=== PATIENT | female | born 2000 | race Two or more races ===

== ENCOUNTER 2020-05-07 23:18 | Inpatient (IN) | payer MEDICAID, OTHER ==
[~2020-05-07] VITALS: Ht 165.1 cm; Wt 60.8 kg
[2020-05-07] MEDS ORDERED: ANTIDEPRESSANT PO (23:33)
[2020-05-07] MEDS ORDERED: SODIUM CHLORIDE 0.9% 1,000 ML IV ONE (23:45)
[2020-05-07 23:58] LABS: BASOPHILS % (AUTO) 0.4 % (0.0-2.0); EOSINOPHILS % (AUTO) 2.1 % (1.0-6.0); HEMATOCRIT 42.8 % (36-46); HEMOGLOBIN 14.4 g/dL (12.0-16.0); LYMPHOCYTES # (AUTO) 3.1 K/uL (1.0-4.8); LYMPHOCYTES % (AUTO) 47.1 % (22.0-44.0); MEAN CORPUSCULAR HEMOGLOBIN 28.9 pg (26.0-34.0); MEAN CORPUSCULAR HGB CONC 33.7 G/dL (31.0-37.0); MEAN CORPUSCULAR VOLUME 86 fL (80-100); MONOCYTES # (AUTO) 0.5 K/uL (0.1-1.0); MONOCYTES % (AUTO) 7.7 % (2.0-9.0); NEUTROPHILS # (AUTO) 2.8 K/uL (1.8-7.7); NEUTROPHILS % (AUTO) 42.7 % (40.0-70.0); PLATELET COUNT (AUTO) 221 K/uL (150-450); RED BLOOD CELL COUNT(AUTO) 4.98 MIL/uL (4.00-5.20); RED CELL DISTRIBUTION WIDTH 12.4 % (11.5-14.5)
[2020-05-08 00:07] LABS: ANION GAP 14 mmol/L (8-16); CALCIUM, TOTAL 8.9 mg/dL (8.8-10.5); CARBON DIOXIDE 23 mmol/L (22-29); CHLORIDE 104 mmol/L (98-107); CREATININE 0.76 mg/dL (0.60-1.30); GLOMERULAR FILTR. RATE CALC > 60 mL/min (>60); GLUCOSE,RANDOM 96 mg/dL (70-110); POTASSIUM 3.3 mmol/L (3.5-5.1); SODIUM SERUM 141 mmol/L (136-145); UREA NITROGEN, BLOOD 11 mg/dL (7-18)
[2020-05-08 00:18] LABS: ALANINE AMINOTRANSFERASE 19 U/L (12-78); ALBUMIN 4.4 g/dL (3.4-5.0); ALKALINE PHOSPHATASE 83 U/L (46-116); ASPARTATE AMINOTRANSFERASE 13 U/L (15-37); BILIRUBIN,TOTAL 0.4 mg/dL (0.1-1.0); HCG,QUANTITATIVE < 1 mIU/mL (0-6); TOTAL PROTEIN, SERUM 8.1 g/dL (6.4-8.2)
[2020-05-08 00:33] LABS: ACETAMINOPHEN 123 mcg/mL (10-30)
[2020-05-08 00:53] LABS: LIPASE 102 U/L (73-393)
[2020-05-08 01:11] LABS: SALICYLATE 0.2 mg/dL (2.8-20.0)
[2020-05-08] MEDS ORDERED: POTASSIUM CHLORIDE 20 MEQ ER TABLET PO ONE (01:15)
[2020-05-08 01:44] LABS: COVID AG,FIA SOURCE NASOPHARYNGEAL
[2020-05-08 02:39] LABS: SALICYLATE < 0.2 mg/dL (2.8-20.0)
[2020-05-08 02:44] LABS: ACETAMINOPHEN 70 mcg/mL (10-30)
[2020-05-08 06:55] LABS: AMPHET/METH SCREEN,URINE NEGATIVE (NEGATIVE); BARBITURATE SCREEN, URINE NEGATIVE (NEGATIVE); BENZODIAZEPINES SCREEN,URINE NEGATIVE (NEGATIVE); CANNABINOID SCREEN,URINE POSITIVE (NEGATIVE); COCAINE SCREEN,URINE NEGATIVE (NEGATIVE); METHADONE SCREEN, URINE NEGATIVE (NEGATIVE); OPIATE SCREEN,URINE NEGATIVE (NEGATIVE)
[2020-05-08 06:56] LABS: PHENCYCLIDINE SCREEN,URINE NEGATIVE (NEGATIVE)
[2020-05-08] MEDS ORDERED: ZOLPIDEM TARTRATE 10 MG TABLET PO PRN (11:30)
[2020-05-08] MEDS ORDERED: LORazepam 2 MG TABLET PO PRN (11:30)
[2020-05-08] MEDS ORDERED: HALOPERIDOL 5 MG TABLET PO PRN (11:30)
[2020-05-08 14:41] VITALS: BP 128/72
[2020-05-08] MEDS: BACITRACIN 28 GM OINTMENT TP SCH (16:04)
[2020-05-08 16:32] VITALS: BP 119/68
[2020-05-08 19:29] VITALS: BP 130/83
[2020-05-08 20:11] VITALS: BP 130/83
[2020-05-09 00:52] VITALS: BP 112/65
[2020-05-09 00:53] VITALS: BP 112/65
[2020-05-09 08:09] VITALS: BP 125/71
[2020-05-09 08:21] LABS: HEMOGLOBIN A1C 4.8 % (3.8-5.6)
[2020-05-09] MEDS ORDERED: CloNIDine HCL 0.1 MG TABLET PO PRN (08:30)
[2020-05-09] MEDS ORDERED: DOCUSATE SODIUM 100 MG CAPSULE PO PRN (08:30)
[2020-05-09] MEDS ORDERED: PETROLATUM,WHITE 28 GM JELLY TP PRN (08:30)
[2020-05-09] MEDS ORDERED: IBUPROFEN 400 MG TABLET PO PRN (08:30)
[2020-05-09] MEDS ORDERED: MAG HYDROX/AL HYDROX/SIMETH ES 30 ML SUSPENSION UDCUP PO PRN (08:30)
[2020-05-09] MEDS ORDERED: ONDANSETRON HCL 4 MG TABLET PO PRN (08:30)
[2020-05-09] MEDS ORDERED: GuaiFENesin/D-METHORPHAN [SUGAR-FREE] 200-20MG/10 ML SYRUP UDCUP PO PRN (08:30)
[2020-05-09] MEDS ORDERED: ALBUTEROL SULFATE HFA 90 MCG/PUFF 8 GM INHALER IH PRN (08:30)
[2020-05-09] MEDS ORDERED: LOPERAMIDE HCL 2 MG CAPSULE PO PRN (08:30)
[2020-05-09] MEDS ORDERED: NICOTINE 14 MG/24 HOUR PATCH TD PRN (08:30)
[2020-05-09] MEDS ORDERED: ACETAMINOPHEN 325 MG TABLET PO PRN (08:30)
[2020-05-09] MEDS ORDERED: MAGNESIUM HYDROXIDE SUSPENSION 30 ML UDCUP PO PRN (08:30)
[2020-05-09 08:43] LABS: CHOL/HDL RATIO 3.2 (3.9-5.7); FREE T4 (FREE THYROXINE) 1.25 ng/dL (0.76-1.46); THYROID STIMULATING HORMONE 0.37 uIU/mL (0.36-3.74)
[2020-05-09] MEDS: BACITRACIN 28 GM OINTMENT TP SCH ×2 (09:11→16:17)
[2020-05-09] MEDS: ESCITALOPRAM OXALATE 10 MG TABLET PO SCH (12:25)
[2020-05-09 13:08] VITALS: BP 125/71
[2020-05-09] MEDS ORDERED: POTASSIUM CHLORIDE 20 MEQ ER TABLET PO ONE (15:00)
[2020-05-09 16:12] VITALS: BP 130/70
[2020-05-09 20:12] VITALS: BP 130/70
[2020-05-10 01:32] VITALS: BP 126/85
[2020-05-10] MEDS: ESCITALOPRAM OXALATE 10 MG TABLET PO SCH (08:21)
[2020-05-10] MEDS: BACITRACIN 28 GM OINTMENT TP SCH ×2 (08:22→16:28)
[2020-05-10 09:27] VITALS: BP 118/63
[2020-05-10 16:17] VITALS: BP 118/66
[2020-05-11 06:42] VITALS: BP 106/75
[2020-05-11] MEDS: ESCITALOPRAM OXALATE 10 MG TABLET PO SCH (08:16)
[2020-05-11] MEDS: BACITRACIN 28 GM OINTMENT TP SCH (08:16)
[2020-05-11 08:17] VITALS: BP 119/64
[2020-05-11] MEDS ORDERED: ESCI-8 PO (09:45)
== END 2020-05-11 11:50 | disposition home or self-care (01) | DRG 751 ==
LOC: EMS 23:19 → B3A 05-08 12:25 → B2S 05-08 16:18
DX: F33.2 Major depressive disorder, recurrent severe without psychotic features (principal); F17.210 Nicotine dependence, cigarettes, uncomplicated; Z20.822 Contact with and (suspected) exposure to COVID-19; R45.851 Suicidal ideations; F12.10 Cannabis abuse, uncomplicated; T39.1X2A Poisoning by 4-Aminophenol derivatives, intentional self-harm, initial encounter; E87.6 Hypokalemia; F41.9 Anxiety disorder, unspecified; R45.87 Impulsiveness; Z91.011 Allergy to milk products; Y92.89 Other specified places as the place of occurrence of the external cause; Z79.899 Other long term (current) drug therapy; Z91.5 Personal history of self-harm
CPT/HCPCS: 74019; 83036; 83605; 84132; 84439; 84443; 87426; 93005; 99291; G0480; G0481; J7030